=== PATIENT | female | born 1955 | race Caucasian/White ===

== ENCOUNTER → 2021-07-02 | Outpatient (CLI) | payer MEDICARE ==
[~2021-07-02] MED LIST: CILOXAN 5 ML5 M1 OT; DAILY MULTIPLE1 TA6 PO; MOTRIN400 MG PO; MULTIPLE VITAMI1 CAP PO; NAPROSYN500 MG PO; NORCO 5-325 TA1 EACH PO; PARAFON FORTE500 MG PO; SUPER EPA W/BO400 MG PO; TYLENOL500 MG PO; VOLTAREN50 M1 PO
== END | disposition home or self-care (01) ==
LOC: RAD 14:13
PROVIDERS: ATTEND Nurse Practitioner Family
DX: R05.9 Cough, unspecified (principal); R06.02 Shortness of breath